=== PATIENT | male | born 1930 | race Caucasian/White ===

== ENCOUNTER → 2017-06-29 | Outpatient (CLI) | payer OTHER | LOC: BMCIMAGING 14:18 | PROVIDERS: ATTEND Internal Medicine Cardiovascular Disease | DX: R09.89 Other specified symptoms and signs involving the circulatory and respiratory systems (principal); Z87.891 Personal history of nicotine dependence; Z86.73 Personal history of transient ischemic attack (TIA), and cerebral infarction without residual deficits ==

== ENCOUNTER → 2018-06-08 | Outpatient (CLI) | payer OTHER | LOC: BMCIMAGING 16:22 | PROVIDERS: ATTEND Internal Medicine | DX: I51.7 Cardiomegaly (principal); M43.8X4 Other specified deforming dorsopathies, thoracic region; Z87.81 Personal history of (healed) traumatic fracture ==